=== PATIENT | male | born 1970 | race Hispanic/Latino ===

== ENCOUNTER 2017-11-20 13:13 | Inpatient (IN) | payer SELFPAY ==
[~2017-11-20] VITALS: Ht 160 cm; Wt 67.7 kg
[2017-11-20] MEDS ORDERED: SODIUM CHLORIDE 0.9% 1000ML 1,000 ML IV ONE ×2 (15:00→17:23)
[2017-11-20] MEDS ORDERED: KETOROLAC TROMETHAMINE 30MG/ML ONE (15:00)
[2017-11-20] MEDS ORDERED: ONDANSETRON ODT 4 MG TAB ONE (15:01)
[2017-11-20] MEDS ORDERED: ACETAMINOPHEN 325 MG TAB ONE (15:01)
[2017-11-20 15:03] LABS: BASOPHILS % (AUTO) 0.2 % (0.0-5.0); HEMATOCRIT 50.9 % (42-54); LYMPHOCYTES % (AUTO) 9.1 % (21.0-51.0); MEAN CORPUSCULAR HEMOGLOBIN 28.9 pg (27.0-33.0); MEAN CORPUSCULAR HGB CONC 33.1 g/dL (32.0-36.0); MEAN CORPUSCULAR VOLUME 87.4 fL (79-99); MONOCYTES % (AUTO) 12.1 % (3.0-13.0); NEUTROPHILS % (AUTO) 78.6 % (40.0-77.0); PLATELET COUNT (AUTO) 241 K/uL (130-400); RED BLOOD CELL COUNT(AUTO) 5.82 MIL/uL (4.50-6.20); RED CELL DISTRIBUTION WIDTH 12.6 % (11.0-15.5); WHITE BLOOD COUNT (AUTO) 14.6 K/uL (4.8-10.8)
[2017-11-20 15:04] LABS: BILIRUBIN,URINE Small (NEGATIVE); COLOR,URINE Dark Yellow (YELLOW); GLUCOSE, URINE (UA) TRACE mg/dL (NEGATIVE); KETONES,URINE Trace mg/dL (NEGATIVE); LEUKOCYTE ESTERASE ,URINE Trace (NEGATIVE); NITRATE,URINE Negative (NEGATIVE); OCCULT BLOOD,URINE Negative (NEGATIVE); PROTEIN,URINE Trace (NEGATIVE)
[2017-11-20 15:41] LABS: APPEARANCE,URINE SLIGHTLY CLOUDY (CLEAR)
[2017-11-20 16:22] LABS: ALBUMIN 4.8 g/dL (3.5-5.0); BILIRUBIN,TOTAL 0.4 mg/dL (0.2-1.0); CREATININE 6.1 mg/dL (0.5-1.5); POTASSIUM 5.3 mmol/L (3.5-5.1); TOTAL PROTEIN, SERUM 10.1 g/dL (6.0-8.3)
[2017-11-20 16:26] LABS: BACTERIA,URINE Few /HPF (None Seen); RBC,URINE 0-1 /HPF (0-1); SQUAMOUS EPITHELIAL CELL,UR Rare /HPF (0-2)
[2017-11-20 16:27] LABS: AMORPHOUS SEDIMENT,UR Moderate /LPF (None Seen)
[2017-11-20 16:28] LABS: OTHER CASTS, URINE WAXY CASTS 1+ /LPF (None Seen)
[2017-11-20] MEDS ORDERED: INSULIN HUMULIN R 100 UNIT/ML 3ML ONE (17:25)
[2017-11-20 17:35] LABS: ABG BASE EXCESS -9.1 mmol/L (-2.0-3.0); ABG HCO3 15.6 mmol/L (21.0-28.0); ABG OXYGEN SATURATION 97.5 % (95.0-99.0); ABG PCO2 31 mmHg (35-48)
[2017-11-20 17:38] LABS: CREATININE 5.5 mg/dL (0.5-1.5); POTASSIUM 4.3 mmol/L (3.5-5.1)
[2017-11-20] MEDS ORDERED: LIDOCAINE HCL-MPF 1% 2ML VIAL IVP PRN (20:30)
[2017-11-20] MEDS ORDERED: POTASSIUM CHLORIDE 20MEQ/100ML 100 ML IV PRN (20:30)
[2017-11-20] MEDS ORDERED: DEXTROSE 50%-WATER 50 ML DISP.SYRIN IV PRN (20:30)
[2017-11-20] MEDS ORDERED: MAGNESIUM 2GM PREMIX 50ML 50 ML IV PRN (20:30)
[2017-11-20] MEDS ORDERED: SODIUM CHLORIDE 0.9% 1000ML 1,000 ML IV SCH (20:30)
[2017-11-20] MEDS ORDERED: GLUCAGON 1MG KIT 1 MG ML IM PRN (20:30)
[2017-11-20] MEDS ORDERED: POTASSIUM CHLORIDE 20 MEQ ERTAB PO PRN (20:30)
[2017-11-20] MEDS ORDERED: POTASSIUM CHLORIDE 10% ELIXIR 20 MEQ/15 ML UDCUP PO PRN (20:30)
[2017-11-20] MEDS: INSULIN HUMULIN R 100 UNIT/ML 3ML SQ SCH (20:45)
[2017-11-20] MEDS ORDERED: ACETAMINOPHEN 325 MG TAB PO PRN (20:45)
[2017-11-20] MEDS ORDERED: ONDANSETRON HCL 4 MG/2 ML VIAL IV PRN (20:45)
[2017-11-20 20:49] LABS: ABG OXYGEN SATURATION 72.7 % (95.0-99.0); BASE EXCESS,VENOUS BLOOD GAS -12.2 (-2.0-3.0); HCO3,VENOUS BLOOD GAS 12.4 (21.0-28.0); PCO2,VENOUS BLOOD GAS 26 (35-48); PH,VENOUS BLOOD GAS 7.294 (7.350-7.450)
[2017-11-20] MEDS ORDERED: INSULIN GLARGINE 100 UNITS/ML 10 ML VIAL SQ SCH (21:00)
[2017-11-20 21:09] LABS: MAGNESIUM 2.2 mg/dL (1.80-2.40); PHOSPHORUS 5.2 mg/dL (2.5-4.9)
[2017-11-20] MEDS ORDERED: DEXTROSE 5 % AND 0.9 % NACL 1,000 ML IV SCH (21:15)
[2017-11-20] MEDS ORDERED: DEXTROSE 5 % AND 0.9 % NACL 1,000 ML IV ONE (21:37)
[2017-11-20 21:41] LABS: ACETONE,BLOOD NEGATIVE (NEGATIVE)
[2017-11-20 23:19] VITALS: BP 130/75
[2017-11-20] MEDS ORDERED: LISI40TA4 PO (23:20)
[2017-11-21] MEDS: INSULIN HUMULIN R 100 UNIT/ML 3ML SQ SCH ×5 (00:14→16:20)
[2017-11-21 00:36] LABS: ABG OXYGEN SATURATION 72.6 % (95.0-99.0); BASE EXCESS,VENOUS BLOOD GAS -10.2 (-2.0-3.0); HCO3,VENOUS BLOOD GAS 15.7 (21.0-28.0); PCO2,VENOUS BLOOD GAS 35 (35-48); PH,VENOUS BLOOD GAS 7.267 (7.350-7.450)
[2017-11-21 00:46] LABS: CREATININE 3.4 mg/dL (0.5-1.5); POTASSIUM 3.7 mmol/L (3.5-5.1)
[2017-11-21 00:49] LABS: PHOSPHORUS 4.4 mg/dL (2.5-4.9)
[2017-11-21 03:50] VITALS: BP 117/68
[2017-11-21 04:19] LABS: CREATININE 2.4 mg/dL (0.5-1.5); POTASSIUM 3.9 mmol/L (3.5-5.1)
[2017-11-21 04:21] LABS: BASOPHILS % (AUTO) 0.3 % (0.0-5.0); EOSINOPHILS % (AUTO) 0.1 % (0.0-8.0); HEMATOCRIT 42.7 % (42-54); LYMPHOCYTES % (AUTO) 12.4 % (21.0-51.0); MEAN CORPUSCULAR HEMOGLOBIN 29.8 pg (27.0-33.0); MEAN CORPUSCULAR HGB CONC 34.2 g/dL (32.0-36.0); MEAN CORPUSCULAR VOLUME 87.2 fL (79-99); MONOCYTES % (AUTO) 10.5 % (3.0-13.0); NEUTROPHILS % (AUTO) 76.7 % (40.0-77.0); PLATELET COUNT (AUTO) 195 K/uL (130-400); RED BLOOD CELL COUNT(AUTO) 4.89 MIL/uL (4.50-6.20); RED CELL DISTRIBUTION WIDTH 12.5 % (11.0-15.5); WHITE BLOOD COUNT (AUTO) 12.3 K/uL (4.8-10.8)
[2017-11-21 04:23] LABS: ALBUMIN 3.5 g/dL (3.5-5.0); BILIRUBIN,TOTAL 0.3 mg/dL (0.2-1.0); MAGNESIUM 1.8 mg/dL (1.80-2.40); PHOSPHORUS 3.1 mg/dL (2.5-4.9); TOTAL PROTEIN, SERUM 7.6 g/dL (6.0-8.3)
[2017-11-21 04:30] LABS: HEMOGLOBIN A1C 9.5 % (4.0-6.0)
[2017-11-21 05:58] LABS: ABG OXYGEN SATURATION 75.7 % (95.0-99.0); BASE EXCESS,VENOUS BLOOD GAS -8.9 (-2.0-3.0); HCO3,VENOUS BLOOD GAS 16.5 (21.0-28.0); PCO2,VENOUS BLOOD GAS 35 (35-48); PH,VENOUS BLOOD GAS 7.297 (7.350-7.450)
[2017-11-21] MEDS ORDERED: SODIUM CHLORIDE 0.9% 1000ML 1,000 ML IV ONE (06:28)
[2017-11-21] MEDS: SODIUM CHLORIDE 0.9% 1000ML 1,000 ML IV SCH ×4 (06:38→20:46)
[2017-11-21 07:56] VITALS: BP 124/74
[2017-11-21] MEDS ORDERED: CLARITHROMYCIN 500 MG TABLET PO SCH (09:00)
[2017-11-21] MEDS ORDERED: METRONIDAZOLE 500 MG TABLET PO SCH (09:00)
[2017-11-21] MEDS: ENOXAPARIN SODIUM 30 MG/0.3 ML SQ SCH (09:53)
[2017-11-21] MEDS: PANTOPRAZOLE SODIUM 40 MG TABLET.DR PO SCH (09:53)
[2017-11-21 10:14] LABS: CREATININE 1.5 mg/dL (0.5-1.5); POTASSIUM 3.4 mmol/L (3.5-5.1)
[2017-11-21 12:17] VITALS: BP 134/86
[2017-11-21 16:39] VITALS: BP 115/76
[2017-11-21] MEDS: METFORMIN HCL 500 MG TABLET PO SCH (17:39)
[2017-11-21 19:00] VITALS: BP 126/78
[2017-11-21] MEDS: INSULIN LISPRO 100 UNIT/ML 3ML SQ SCH (21:00)
[2017-11-21] MEDS ORDERED: INSULIN GLARGINE 100 UNITS/ML 10 ML VIAL SQ SCH (21:00)
[2017-11-21 23:00] VITALS: BP 142/84
[2017-11-22 03:00] VITALS: BP 133/82
[2017-11-22 04:09] LABS: HEMATOCRIT 40.4 % (42-54); MEAN CORPUSCULAR HEMOGLOBIN 29.5 pg (27.0-33.0); MEAN CORPUSCULAR VOLUME 86.7 fL (79-99); NUCLEATED RED BLOOD CELLS 0.1 % (0.0-0.19); PLATELET COUNT (AUTO) 163 K/uL (130-400); RED BLOOD CELL COUNT(AUTO) 4.67 MIL/uL (4.50-6.20); RED CELL DISTRIBUTION WIDTH 12.7 % (11.0-15.5); WHITE BLOOD COUNT (AUTO) 8.3 K/uL (4.8-10.8)
[2017-11-22 04:24] LABS: CREATININE 0.9 mg/dL (0.5-1.5); MAGNESIUM 1.9 mg/dL (1.80-2.40); POTASSIUM 3.7 mmol/L (3.5-5.1)
[2017-11-22] MEDS: SODIUM CHLORIDE 0.9% 1000ML 1,000 ML IV SCH (05:41)
[2017-11-22] MEDS ORDERED: GLIPIZIDE 5 MG TABLET PO SCH (07:30)
[2017-11-22] MEDS: INSULIN LISPRO 100 UNIT/ML 3ML SQ SCH ×2 (07:30→11:30)
[2017-11-22 08:00] VITALS: BP 120/82
[2017-11-22 09:23] LABS: CREATININE 0.9 mg/dL (0.5-1.5); POTASSIUM 3.7 mmol/L (3.5-5.1)
[2017-11-22] MEDS ORDERED: METF-444 PO (09:32)
[2017-11-22] MEDS ORDERED: GLIP5TAB11 PO (09:32)
[2017-11-22] MEDS ORDERED: INSU3INS3 SQ (09:32)
[2017-11-22] MEDS ORDERED: LISI40TA4 PO (09:32)
[2017-11-22] MEDS: METFORMIN HCL 500 MG TABLET PO SCH ×2 (10:05→12:47)
[2017-11-22] MEDS: PANTOPRAZOLE SODIUM 40 MG TABLET.DR PO SCH (10:06)
[2017-11-22] MEDS: ENOXAPARIN SODIUM 30 MG/0.3 ML SQ SCH (10:07)
[2017-11-22 12:00] VITALS: BP 140/87
== END 2017-11-22 13:30 | disposition home or self-care (01) | DRG 638 ==
LOC: EDH 13:13 → EDHIP 13:14 → 2DH 23:15
PROVIDERS: ADMIT Internal Medicine; ATTEND Internal Medicine
DX: E11.10 Type 2 diabetes mellitus with ketoacidosis without coma (principal); N17.9 Acute kidney failure, unspecified; E87.1 Hypo-osmolality and hyponatremia; E87.5 Hyperkalemia; B96.81 Helicobacter pylori [H. pylori] as the cause of diseases classified elsewhere; E86.1 Hypovolemia; F17.200 Nicotine dependence, unspecified, uncomplicated; I10 Essential (primary) hypertension; E11.21 Type 2 diabetes mellitus with diabetic nephropathy; E11.319 Type 2 diabetes mellitus with unspecified diabetic retinopathy without macular edema; E11.40 Type 2 diabetes mellitus with diabetic neuropathy, unspecified; Z79.4 Long term (current) use of insulin; Z91.19 Patient's noncompliance with other medical treatment and regimen; Z83.3 Family history of diabetes mellitus; Z82.3 Family history of stroke; Z82.5 Family history of asthma and other chronic lower respiratory diseases; Z82.49 Family history of ischemic heart disease and other diseases of the circulatory system; Z84.89 Family history of other specified conditions
CPT/HCPCS: 36415; 36600; 80048; 80053; 81001; 82009; 82803; 82948; 83036; 83605; 83735; 83930; 84100; 85025; 85027; 86677; 87804; J1650; J1815; J1885; J7030; J7042

== ENCOUNTER 2020-10-21 23:00 | Emergency (ER) | payer OTHER, SELFPAY ==
[~2020-10-21 23:00] MED LIST: GLIP5TAB11 PO; INSU3INS3 SQ; LISI40TA9 PO; METF-444 PO
[2020-10-21 23:02] VITALS: BP 128/93
[2020-10-21] MEDS ORDERED: ALBUTEROL INHALER 90MCG/INH IH PRN (23:30)
[2020-10-21] MEDS ORDERED: ACETAMINOPHEN WITH CODEINE 1 TAB TAB PO ONE (23:30)
[2020-10-21 23:55] LABS: BASOPHILS % (AUTO) 0.1 % (0.0-5.0); HEMATOCRIT 38.8 % (42-54); LYMPHOCYTES % (AUTO) 21.7 % (21.0-51.0); MEAN CORPUSCULAR HEMOGLOBIN 30.2 pg (27.0-33.0); MEAN CORPUSCULAR HGB CONC 35.1 g/dL (32.0-36.0); MEAN CORPUSCULAR VOLUME 86.2 fL (79-99); MONOCYTES % (AUTO) 6.4 % (3.0-13.0); NEUTROPHILS % (AUTO) 71.4 % (40.0-77.0); PLATELET COUNT (AUTO) 168 K/uL (130-400); RED CELL DISTRIBUTION WIDTH 11.8 % (11.0-15.5)
[2020-10-22 00:05] LABS: CREATININE 0.9 mg/dL (0.5-1.5); POTASSIUM 4.1 mmol/L (3.5-5.1)
[2020-10-22 00:09] LABS: ALBUMIN 3.4 g/dL (3.5-5.0); BILIRUBIN,TOTAL 0.4 mg/dL (0.2-1.0); CRP QUANTITATIVE 85.9 mg/L (0.00-9.0); TOTAL PROTEIN, SERUM 7.8 g/dL (6.0-8.3)
[2020-10-22 00:14] LABS: B-TYPE NATRIURETIC PEPTIDE 10 pg/mL (0-100)
[2020-10-22] MEDS ORDERED: ACETAMINOPHEN 500 MG TABLET PO ONE (00:30)
[2020-10-22] MEDS ORDERED: AMOX500C2 PO (00:53)
[2020-10-22] MEDS ORDERED: BUDE180H IH (00:53)
[2020-10-22] MEDS ORDERED: ALBU8.5H8 IH (00:53)
[2020-10-22] MEDS ORDERED: AMOXICILLIN 500 MG CAPSULE PO ONE ×2 (01:00→01:02)
== END 2020-10-22 01:30 | disposition home or self-care (01) ==
LOC: EDH 23:00
DX: U07.1 COVID-19 (principal); J02.0 Streptococcal pharyngitis; E11.65 Type 2 diabetes mellitus with hyperglycemia; F17.210 Nicotine dependence, cigarettes, uncomplicated; Z79.4 Long term (current) use of insulin; Z79.899 Other long term (current) drug therapy; Z91.012 Allergy to eggs; Z91.011 Allergy to milk products
CPT/HCPCS: 36415; 71045; 80053; 83605; 83880; 84484; 85025; 86140; 87040 ×2; 87635; 87804 ×2; 87880; 93005; 99285; C9803

== ENCOUNTER 2024-05-04 12:04 | Emergency (ER) | payer BC, OTHER ==
[~2024-05-04] VITALS: Ht 160 cm; Wt 72.6 kg
[~2024-05-04 12:04] MED LIST changes: +ALBU8.5H8 IH; +AMOX500C2 PO; +BUDE180H IH; -GLIP5TAB11 PO; +GLIP5TAB15 PO
[2024-05-04 12:38] LABS: BASOPHILS # (AUTO) 0.03 K/uL (0.00-0.20); BASOPHILS % (AUTO) 0.3 % (0.0-5.0); EOSINOPHILS % (AUTO) 5.1 % (0.0-8.0); HEMATOCRIT 31.2 % (42-54); IMMATURE GRANULOCYTE ABSOLUTE 0.04 K/uL (0-1); LYMPHOCYTES # (AUTO) 2.8 K/uL (1.0-4.8); LYMPHOCYTES % (AUTO) 23.5 % (21.0-51.0); MEAN CORPUSCULAR HEMOGLOBIN 27.2 pg (27.0-33.0); MEAN CORPUSCULAR HGB CONC 32.4 g/dL (32.0-36.0); MEAN CORPUSCULAR VOLUME 83.9 fL (79-99); MONOCYTES # (AUTO) 0.6 K/uL (0.1-1.0); MONOCYTES % (AUTO) 5.3 % (3.0-13.0); NEUTROPHILS # (AUTO) 7.7 K/uL (1.8-7.7); NEUTROPHILS % (AUTO) 65.5 % (40.0-77.0); PLATELET COUNT (AUTO) 286 K/uL (130-400); RED BLOOD CELL COUNT(AUTO) 3.72 MIL/uL (4.50-6.20); RED CELL DISTRIBUTION WIDTH 12.7 % (11.0-15.5); WHITE BLOOD COUNT (AUTO) 11.8 K/uL (4.8-10.8)
[2024-05-04] MEDS: ORPHENADRINE 60MG/2ML IM ONE (12:38)
[2024-05-04] MEDS: ketOROlac 15MG/ML VIAL (15MG/ML) IV ONE (12:38)
[2024-05-04 12:48] LABS: CREATININE 1.3 mg/dL (0.5-1.3); POTASSIUM 4.1 mmol/L (3.5-5.1)
[2024-05-04 12:52] LABS: ALBUMIN 2.8 g/dL (3.5-5.0); BILIRUBIN,TOTAL 0.2 mg/dL (0.2-1.0); TOTAL PROTEIN, SERUM 7.6 g/dL (6.0-8.3)
[2024-05-04] MEDS ORDERED: LOSA25TA41 PO (13:26)
[2024-05-04] MEDS ORDERED: NAPR-1194 PO (13:26)
--- NOTE | 2024-05-04 13:26 | ERN ---
General Chief Complaint: Upper Extremity Pain/Injury Stated Complaint: RT ARM PAIN Time Seen by MD: 12:07 Source: patient History of Present Illness Initial Comments Patient is a 53-year-old gentleman coming in to be evaluated for right arm discomfort. 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 Allergies: Coded Allergies: No Known Drug Allergies (Verified Allergy, Unknown, 11/20/17) egg (Unverified Allergy, Unknown, HIVES, 11/20/17) mayonnaise (Unverified Allergy, Unknown, HIVES, 11/20/17) milk (Unverified Allergy, Unknown, HIVES, 11/20/17) Home Meds Active Scripts Albuterol Sulfate (Proair Hfa) 8.5 Gm Hfa.aer.ad, 8.5 GM IH Q6HPRN PRN for wheeze, #1 INHALER 0 Refills Prov:JESSICA SMITH MD 10/22/20 Budesonide (Pulmicort Inhaler) 180 Mcg/Puff Puff, 180 MCG IH BID for 15 Days, #1 INHALER 0 Refills Prov:JESSICA SMITH MD 10/22/20 Amoxicillin (Amoxicillin) 500 Mg Capsule, 500 MG PO TID for 10 Days, #30 CAP 0 Refills Prov:JESSICA SMITH MD 10/22/20 Insulin Glargine,Hum.rec.anlog (Lantus Solostar) 100 Unit/1 Ml Insuln.pen, 15 UNIT SQ HS for 30 Days, #30 SYRINGE 0 Refills Prov:PRATIK AYALA Jr., MD 11/22/17 Metformin HCl (Metformin HCl) 500 Mg Tablet, 500 MG PO TIDMEALS for 30 Days, #90 TAB Prov:PRATIK AYALA Jr., MD 11/22/17 Glipizide (Glipizide) 5 Mg Tablet, 5 MG PO BIDAC for 30 Days, #60 TAB Prov:PRATIK AYALA Jr., MD 11/22/17 Lisinopril (Lisinopril) 40 Mg Tablet, 40 MG PO DAILY for 30 Days, #30 TAB Prov:PRATIK AYALA Jr., MD 11/22/17 Past Medical History Past Medical History: No Pertinent History, Diabetes-Type II, Hypertension Medical History Other: Tobacco abuse Past Surgical History: Appendectomy ROS Dictation CONSTITUTIONAL: No chills, no fever, no weakness, no diaphoresis, no malaise. HEAD/FACE: No signs of trauma. EENT: No eye pain, no blurred vision, no tearing, no double vision, no ear pain, no ear discharge, no nose pain, no nasal congestion, no throat pain, no throat swelling, no mouth pain. RESPIRATORY: No cough, no orthopnea, no SOB, no stridor, no wheezing. CARDIOVASCULAR: No chest pain, no edema, no palpitations, no syncope. GASTROINTESTINAL/ABDOMINAL: No abdominal pain, no constipation, no diarrhea, no nausea, no vomiting. GENITOURINARY: No abnormal discharge, no dysuria, no frequent urination, no hematuria. No complaints of pain in the genitals. MUSCULOSKELETAL: No back pain, no gout, no joint pain, no joint swelling, no muscle pain, no muscle stiffness, no neck pain. INTEGUMENTARY: No change in color, no change in hair/nails, no dryness, no lesion, no lumps, no rash. NEUROLOGICAL/PSYCH: No anxiety, not depressed, no emotional problem, no headache, no numbness, no pre-existing deficit, no history of seizures, no tremors, no weakness. HEMATOLOGIC/LYMPHATIC: Not anemic, no history of blood clots, no apparent bleeding, no bruising, glands not swollen. All Systems Negative, Except as Noted. Physical Exam Physical Exam Dictation VITAL SIGNS: Reviewed. GENERAL APPEARANCE: Alert, oriented x3, no acute distress, obese. HEAD AND FACE: Non-traumatic. EYES: PERRL, pink conjunctivas, eyelid no trauma, anterior chamber clear. EARS: Pinnas intact and no signs of trauma or erythema. Ear canals clear and no discharge. TMs no erythema. NOSE: No discharge, no bleeding. OROPHARYNX: Mouth normal, teeth no caries, tongue pink. Pharynx clear, no erythema. Tonsils no exudates, no abscesses noted. Mucous membrane moist. NECK: Supple, non-tender, no thyromegaly, no masses, no JVD, no bruits. BREAST: Deferred. CHEST: No tenderness, no crepitus, no paradoxical movement, no retractions. LUNGS: Clear, well-ventilated, symmetric, no rales, no wheezing, no rhonchi, no stridor, good breath sounds bilaterally. HEART: Regular rate, regular rhythm, no murmur, no gallops. VASCULAR: No peripheral edema. ABDOMEN: Soft, positive bowel sounds, nondistended, no guarding, nontender, no rebound, no masses no hepatomegaly, no splenomegaly, no Bee's sign, no hernias. RECTAL: Deferred. GENITAL: Deferred. NEUROLOGICAL: Normal speech, gross motor function intact, gross sensory function intact. MUSCULOSKELETAL: Neck nontender, full range of motion, back nontender, full range of motion. EXTREMITIES: Nontender, full range of motion. Right elbow pain is reproduced on ulnar palpation SKIN: Color pink, dry, no turgor, no rash, no lacerations, no abrasions, no contusions. LYMPHATICS: Deferred. Results Laboratory and Microbiology Lab and Micro Result Laboratory Tests Test 05/04/24 12:28 White Blood Count 11.8 K/uL (4.8-10.8) H Red Blood Count 3.72 MIL/uL (4.50-6.20) L Hemoglobin 10.1 g/dL (14.0-18.0) L Hematocrit 31.2 % (42-54) L Mean Corpuscular Volume 83.9 fL (79-99) Mean Corpuscular Hemoglobin 27.2 pg (27.0-33.0) Mean Corpuscular Hemoglobin Concent 32.4 g/dL (32.0-36.0) Red Cell Distribution Width 12.7 % (11.0-15.5) Platelet Count 286 K/uL (130-400) Mean Platelet Volume 10.2 fL (7.5-10.5) Immature Granulocyte % (Auto) 0.3 % (0-1) Neutrophils (%) (Auto) 65.5 % (40.0-77.0) Lymphocytes (%) (Auto) 23.5 % (21.0-51.0) Monocytes (%) (Auto) 5.3 % (3.0-13.0) Eosinophils (%) (Auto) 5.1 % (0.0-8.0) Basophils (%) (Auto) 0.3 % (0.0-5.0) Neutrophils # (Auto) 7.7 K/uL (1.8-7.7) Lymphocytes # (Auto) 2.8 K/uL (1.0-4.8) Monocytes # (Auto) 0.6 K/uL (0.1-1.0) Eosinophils # (Auto) 0.60 K/uL (0.00-0.70) Basophils # (Auto) 0.03 K/uL (0.00-0.20) Absolute Immature Granulocyte (auto 0.04 K/uL (0-1) Nucleated Red Blood Cells 0.0 % (0.0-0.19) Sodium Level 137 mmol/L (136-145) Potassium Level 4.1 mmol/L (3.5-5.1) Chloride Level 103 mmol/L (101-111) Carbon Dioxide Level 28 mmol/L (21-32) Blood Urea Nitrogen 23 mg/dL (7-18) H Creatinine 1.3 mg/dL (0.5-1.3) Glomerular Filtration Rate Calc 65 mL/min (>90) Random Glucose 316 mg/dL (70-105) H Total Calcium 8.5 mg/dL (8.5-10.1) Total Bilirubin 0.2 mg/dL (0.2-1.0) Aspartate Amino Transf (AST/SGOT) 11 U/L (10-37) Alanine Aminotransferase (ALT/SGPT) 15 U/L (12-78) Alkaline Phosphatase 142 U/L (50-136) H Total Creatine Kinase 104 U/L (21-232) Troponin I High Sensitivity 9 ng/L (4-75) Total Protein 7.6 g/dL (6.0-8.3) Albumin 2.8 g/dL (3.5-5.0) L MDM MDM: Differential diagnosis: Carpal tunnel syndrome, tendinopathy Patient is a 53-year-old gentleman coming in to be evaluated for right elbow pain extending down the distal extremity. 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 On physical exam carpal tunnel is tender on palpation and it reproduces the numbness and tingling sensation on pressing. Patient will be discharged in stable condition with diagnosis of carpal tunnel syndrome. I did advised him appropriate follow up with PCP in 1-2 days. ED Course Orders Procedure Category Date Status Time Cbc With Differential LAB 05/04/24 Complete 12:11 Comprehensive LAB 05/04/24 Complete Metabolic Panel 12:11 Creatine Kinase, Total LAB 05/04/24 Complete 12:11 Troponin I High LAB 05/04/24 Complete Sensitivity 12:11 12 Lead Ekg Tracing- EKG 05/04/24 Logged Technical 12:11 Orphenadrine Citrate PHA 05/04/24 Complete (Norflex) 12:30 Ketorolac PHA 05/04/24 Complete Tromethamine 15mg/Ml 12:30 Current Medications Medications (Trade) Dose Ordered Sig/Jonathon Route PRN Reason Start Time Stop Time Status Last Admin Dose Admin Ketorolac Tromethamine (toRADol) 15 mg ONCE ONCE IV 05/04/24 12:30 05/04/24 12:31 DC 05/04/24 12:38 Orphenadrine Citrate (Norflex) 60 mg ONCE ONCE IM 05/04/24 12:30 05/04/24 12:31 DC 05/04/24 12:38 Vital Signs Date Time Temp Pulse Resp B/P (MAP) Pulse Ox O2 Delivery O2 Flow Rate FiO2 05/04/24 12:06 97.7 98 18 200/109 100 Room Air 0 DX & DISP Disposition: Discharge Departure Impression: Primary Impression: Cubital tunnel syndrome on right Additional Impressions: Medical non-compliance, Hypertension Condition: Stable Scripts Losartan Potassium (Losartan Potassium) 25 Mg Tablet 1 TAB PO DAILY for 30 Days, #30 TAB 0 Refills Prov: ZACK ARCOS MD 05/04/24 Naproxen (Naproxen) 500 Mg Tablet 500 MG PO BID for 7 Days, #14 TAB Prov: ZACK ARCOS MD 05/04/24 Additional Instructions: FOLLOW-UP WITH PRIMARY CARE PROVIDER IN 1 TO 2 DAYS. TAKE MEDICATIONS DIRECTED HERE IN THE EMERGENCY ROOM. OKAY TO CONTINUE HOME MEDICATIONS UNLESS OTHERWISE DISCUSSED DURING YOUR VISIT IN THE EMERGENCY ROOM TODAY. RETURN TO YOUR NEAREST EMERGENCY ROOM IF SYMPTOMS WORSEN OR IF THERE IS NO IMPROVEMENT. CALL 911 IF YOU NEED IMMEDIATE ASSISTANCE. TAKE TYLENOL [id number] NEEDED AND IF NO CONTRAINDICATIONS ARE PRESENT. INCREASE ORAL HYDRATION. A WOUND CULTURE OR URINE CULTURE WAS ORDERED HERE IN THE EMERGENCY ROOM DEPARTMENT PLEASE FOLLOW-UP WITH PRIMARY CARE PROVIDER AND ADVISE THEM TO GET REPEAT PORTS FROM OUR FACILITY. IF YOU HAD ANY SHARYN WRAP/SPLINTS THAT WERE APPLIED HERE, PLEASE DO NOT REMOVE THEM UNTIL YOU SEE YOUR PRIMARY CARE OR SPECIALTY. Referrals: Referrals: [facility] TECHN[facility]IST (PCP) DON HUERTA MD Time of Disposition: 13:24 ZACK ARCOS MD May 04, 2024 13:26
[2024-05-04] MEDS: cloNIDine HCL 0.1 MG TABLET PO ONE (13:33)
[2024-05-04 14:10] VITALS: BP 175/89; PULSE 80; RESP 16; TEMP 98; O2SAT 100
--- NOTE | 2024-05-04 14:40 | EKG ---
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
== END 2024-05-04 14:09 | disposition home or self-care (01) ==
LOC: EDH 12:04
DX: G56.21 Lesion of ulnar nerve, right upper limb (principal); I10 Essential (primary) hypertension; F17.200 Nicotine dependence, unspecified, uncomplicated; Z79.51 Long term (current) use of inhaled steroids; Z79.899 Other long term (current) drug therapy; Z90.49 Acquired absence of other specified parts of digestive tract; Z91.199 Patient's noncompliance with other medical treatment and regimen due to unspecified reason
CPT/HCPCS: 99284; 96374; 82550; 84484; 80053; 85025; 36415; 93005; 96372; J1885; J2360